=== PATIENT | male | born 1985 | race American Indian/Alaskan Native ===

== ENCOUNTER 2017-10-26 10:37 | Day surgery (SDC) | payer BC ==
[2017-10-25 08:55] VITALS: BMI 24.0
[2017-10-26 11:18] VITALS: RESP 18
--- NOTE | 2017-10-26 11:26 | CP.PCM.PN ---
Subjective - Date & Time of Evaluation Date of Evaluation: 10/26/17 Time of Evaluation: 11:00 - Subjective Subjective: Podiatry Pre-operative Note- Dr. Gallego 32 y.o male with no PMH seen and evaluated at bedside for right painful foot. Patient reports the pain has gotten progressively worse over the last 2 years. Reports his pain 4/10 today and 10/10 at its worse which was when he walked for long periods of time in his shoes and at the end of the day. Patient reports nothing to eat or drink since last night. Denies nausea, fever, shortness of breath, chest pains or chills. No other pedal complaints. PMH: denies PSH: denies SH: smokes 6 cigarettes per day, socially drinks, denies illicit drug use ALL: NKDA Objective - Vital Signs/Intake and Output Vital Signs (last 24 hours): Temp Pulse Resp BP Pulse Ox 97.9 F 74 18 130/76 100 10/26/17 11:15 10/26/17 11:20 10/26/17 11:15 10/26/17 11:15 10/26/17 11:15 - Constitutional Appears: Well, Non-toxic, No Acute Distress - Extremities Exam Extremities Exam: absent: Calf Tenderness Additional comments: Lower extremity focused examination: VASC: DP and PT 2/4 bilaterally, CFT< 3 seconds x 10 digits, temperature gradient WNL, no edema noted ORTHO: pain with palpation to the medial aspect of the 1st right MPJ, no pain with palpation of dorsum of the right 1st MPJ, there is b/l hallux abductovalugs deformity with tracking hallux R>L, no trackbound noted. There is collpase of the medial arch upon stance and gait, with mild abduction of the forefoot and rearfoot eversionb b/l. There is plantarflexed first ray bilaterally. First MTPJ ROM on the left is to 20 degrees of dorsiflexion, 10 degrees of plantarflexion. There is mild hammering of the lesser digits b/l with flexible deformity. Ankle dorsiflexion range of motion to 90 degrees on the right and left. Plantarflexion ROM to 30 degrees bilaterally. Negative crepitus with ROM b/l. There is increased metatarsal declination on the left, slightly increased on the right. STJ ROM is limited b/l, right: 10 degrees inversion, 7 degrees eversion, left 12 degrees inversion, 10 degrees eversion. There is mild forefoot valgus present bilaterally. NEURO: gross and protective sensation intact bilaterally DERM: mild erythema noted to the medial aspect of the 1st MPJ at the right foot , no open lesions, no calluses, no lesions, no clinical signs of infection noted. - Neurological Exam Neurological Exam: Alert, Awake - Psychiatric Exam Psychiatric exam: Normal Affect, Normal Mood - Skin Skin Exam: Normal Color Assessment and Plan - Assessment and Plan (Free Text) Assessment: 32 year old preoperative evaluation for right foot hallux valgus deformity for right bunionectomy in OR today Plan: Pt was seen and examined in SDS Pt NPO status was confirmed All pre-op testing and clearance in chart Pt has exhausted all conservative treatment at this time and is opting for surgical intervention Pt was explained procedure and post-operative course All pt's questions were answered to satisfaction No guarantees were made Pt understands all risks, benefits and complications of procedure Pt will follow-up with Dr. Gallego within 1 week of surgery
--- NOTE | 2017-10-26 11:26 | CP.SDSHP ---
Same Day Surgery H & P - History Proposed Procedure: right foot bunionectomy Pre-Op Diagnosis: right painful hallux valgus deformity - Allergies Allergies: Allergies No Known Allergies Allergy (Verified 10/26/17 10:59) - Physical Exam Vital Signs: Vital Signs 10/26/17 10/26/17 11:15 11:20 Temperature 97.9 F Pulse Rate 74 74 Respiratory 18 Rate Blood Pressure 130/76 O2 Sat by Pulse 100 Oximetry Mental Status: Alert & Oriented x3 - {Optional Preform as Required} Integument: WNL - Impression Impression: Pt was seen and examined in SDS. Pt NPO status was confirmed. All pre-op testing and clearance in chart. Pt has exhausted all conservative treatment at this time and is opting for surgical intervention. Pt was explained procedure and post-operative course. All pt's questions were answered to satisfaction. No guarantees were made. Pt understands all risks, benefits and complications of procedure. Pt will follow-up with Dr. Gallego within 1 week of surgery Short Stay Discharge - Short Stay Discharge Admitting Diagnosis/Reason for Visit: M21.611 Disposition: HOME/ ROUTINE Referrals: Elias Gallego DPM [Primary Care Provider] - Additional Instructions (Diet, Activity): -Patient in good/stable condition for discharge home -Pt to resume medications per medical reconciliation -Resume regular diet Please keep dressing clean, dry, & intact to surgical site -Use plastic bag over bandage for showering -Wear post op shoe at all times when ambulating -Call clinic if you see signs of infection (redness, swelling, malodor) -Please make an appointment to see Dr. Gallego in office/clinic within 1 week for post-op check Progress Note/Discharge Note with Instructions: - Patient evaluated bedside in recovery s/p surgical procedure. - After surgical procedure patient in NAD - (+) Void, (+) Appetite - Capillary refill time <3s and NVSI intact. - Patient denies complaints at this time - Post operative instructions and plan of care explained to patient at length. - Pt. acknowledges understanding. - Patient stable for DC per podiatric surgery
[2017-10-26] MEDS ORDERED: Lidocaine 2% Inj (20ml) ONE (11:50)
[2017-10-26] MEDS ORDERED: Bupivacaine HCl 0.25% PF (30 ml) Inj ONE (11:50)
[2017-10-26] MEDS ORDERED: ceFAZolin IV 2 gm in Dextrose 2 GM/50 ML BAG IVPB ONE (11:50)
[2017-10-26] MEDS ORDERED: Propofol 10 mg/ml Inj (20 ML) ONE (11:52)
[2017-10-26] MEDS ORDERED: Midazolam 2 MG/2 ML VIAL ONE (11:52)
[2017-10-26] MEDS ORDERED: Lactated Ringer's 1,000 ML IV ONE ×3 (12:00→12:52)
--- NOTE | 2017-10-26 13:30 | PCM.SURG1 ---
Surgeon's Initial Post Op Note - Surgeon's Notes Surgeon: Dr. Gallego Computer Aide: Dr. Shawna Coughlin PGY-2, Dr. Linda James PGY-1 Type of Anesthesia: General LMA, Local Anesthesia Administered By: Dr. Andre Pre-Operative Diagnosis: right foot hallux valgus deformity Operative Findings: see operative report. I: 10cc 1:1 mix 2% Lidocaine plain and 0.5% Marcaine plain. M: 2-0 Vicryl, 4-0 Vicryl, 4-0 Monocryl Post-Operative Diagnosis: same Operation Performed: right foot Silver bunionectomy Specimen/Specimens Removed: 1st metatarsal bone medial eminence Estimated Blood Loss: EBL {In ML}: 2 Blood Products Given: N/A Drains Used: No Drains Post-Op Condition: Good Date of Surgery/Procedure: 10/26/17 Time of Surgery/Procedure: 13:31
[2017-10-26] MEDS ORDERED: Oxycodone/Acetaminophen 5/325 mg Tab PO PRN ×2 (13:31)
[2017-10-26] MEDS ORDERED: HYDROmorphone 0.5 mg/0.5 ml ISec IVP PRN (13:44)
[2017-10-26] MEDS ORDERED: Lactated Ringer's 1,000 ML IV SCH (13:45)
--- NOTE | 2017-10-26 14:56 | RAD ---
PROCEDURE: Right Foot Radiographs. Three portable views of the right foot performed HISTORY: Status post bunion surgery COMPARISON: None. FINDINGS: BONES: Apparent postoperative body osteotomy changes right distal 1st metatarsal. There appears be small amount surrounding soft tissue edema and subcutaneous air margin as well, the latter of which may extend into the joint space. JOINTS: Joint spaces otherwise unremarkable SOFT TISSUES: Normal. OTHER FINDINGS: None. IMPRESSION: Postoperative changes distal 1st metatarsal with surrounding postoperative soft tissue changes as detailed above.
[2017-10-26 15:23] VITALS: O2SAT 98
[2017-10-26 16:28] VITALS: BP 112/76; PULSE 72; TEMP 98.2
--- NOTE | 2017-10-27 00:02 | OP ---
PROCEDURE DATE: 10/26/2017 PREOPERATIVE DIAGNOSIS: Right foot painful hallux valgus deformity. POSTOPERATIVE DIAGNOSIS: Right foot painful hallux valgus deformity. PROCEDURE: Right foot bunionectomy with cutting of soft tissue and bone. SURGEON: Elias Gallego MD. STEEL FINISHER: Shawna Coughlin DPM PGY2. ANESTHESIA ADMINISTERED BY: Jeremie Andre MD. TYPE OF ANESTHESIA: General LMA. INDICATIONS: The patient is a 32-year-old male with the above mentioned diagnosis. The patient is being treated by Dr. Gallego in his office on an out patient basis, where he has exhausted multiple forms of conservative treatments at this time and now request surgical intervention. The patient signed the consent after careful explanation of risk, benefits, complications of the proposed surgical procedure. No guarantees were given nor implied. Consent was signed and n.p.o. status was confirmed prior to bringing the patient to the operating room. The patient was then brought in to the operating room, placed on the operating room table in a supine position. Once general anesthesia was achieved, a local injecting of 10 mL of 1:1 mixture of 1% lidocaine plain and 0.25% Marcaine plain given in a local block-type fashion to the right foot. The patient was then prepped and draped in normal standard manner and procedure began. DESCRIPTION OF PROCEDURE: Attention was then directed to the medial aspect of the first metatarsal head of the right foot, where an approximately 4 cm linear longitudinal incision was made medial and parallel to the tendon of the extensor hallucis longus and involving the contour of the deformity. The incision was deepened to the subcutaneous tissue where care being taken to identify and retract all vital neurovascular structure. All bleeders were cauterized and ligated as necessary. At this time, a linear type capsulotomy was performed over the dorsal medial aspect of the first metatarsophalangeal joint. The periosteal capsular structures were then carefully dissected, free of their osseous attachments and reflected medially and laterally thus exposing the head of the first metatarsal into the operative site. Next, utilizing a sagittal saw, the medial prominence was resected and passed from the operative field. All rough edges were then smoothed down as necessary. Correction of the deformity was assessed at this time and noted to be excellent. The surgical incision site was then copiously irrigated with sterile normal saline. Periosteal and capsular tissues was then reapproximate with 2-0 Vicryl. The subcutaneous tissue was reapproximate with 4-0 Vicryl and the skin was reapproximate with 4-0 Monocryl. Postoperative bandage included Steri-Strips, Betadine-soaked Adaptic, 4 x 4 gauze Sonny, and Tio. POSTOPERATIVE CONDITION: The patient tolerated the anesthesia and the procedure well and was escorted to the recovery room with vital signs stable and neurovascular status intact to the right foot. The patient will followup with Dr. Gallego in his office on an outpatient basis. Shawna Coughlin DPM Elias Gallego DPM
== END 2017-10-26 16:10 | disposition home or self-care (01) ==
LOC: H.OPSURG 10:37
PROVIDERS: ATTEND Podiatrist Foot & Ankle Surgery
DX: M21.611 Bunion of right foot (principal); M20.11 Hallux valgus (acquired), right foot; F17.210 Nicotine dependence, cigarettes, uncomplicated
CPT/HCPCS: 28292; 73630; J0690; J1885; J2001; J2250; J2704; J3010; J7030; J7120